=== PATIENT | male | born 1995 | race Hispanic/Latino ===

== ENCOUNTER 2023-10-19 09:45 | Emergency (ER) | payer SELFPAY ==
[2023-10-19] MEDS ORDERED: Metoclopramide HCl 10 MG (2 mL) VIAL ONE (10:51)
[2023-10-19] MEDS ORDERED: diphenhydrAMINE 50 MG/ML VIAL ONE (10:51)
[2023-10-19] MEDS ORDERED: Acetaminophen 500 MG TAB ONE (10:51)
[2023-10-19] MEDS ORDERED: Ketorolac Tromethamine 30 MG (1 mL) VIAL ONE (10:52)
[2023-10-19] MEDS ORDERED: Proparacaine 0.5% Opth 15 ML BOT ONE (13:04)
[2023-10-19] MEDS ORDERED: Fluorescein Opthalmic Strip ONE (13:05)
== END 2023-10-19 13:32 | disposition home or self-care (01) ==
LOC: ERS 09:45
DX: H16.002 Unspecified corneal ulcer, left eye (principal); Z75.8 Other problems related to medical facilities and other health care
CPT/HCPCS: 96374; 96375; J1200; J1885; J2765